=== PATIENT | female | born 1980 | race Caucasian/White ===

== ENCOUNTER 2017-12-13 09:42 | Emergency (ER) | payer BC ==
--- NOTE | 2017-12-13 11:14 | UC ---
Shoulder Pain HPI - HPI Summary HPI Summary: Patient awoke 2 days ago with left shoulder pain. Patient has limited active range of motion but has full passive range of motion complains of anterior pain with movement of her shoulder. Neuromotor circulation intact distally.no swelling, rash, warmth - History of Current Complaint Chief Complaint: UCUpperExtremity Stated Complaint: SHOULDER PAIN Time Seen by Provider: 12/13/17 11:07 Hx Obtained From: Patient Hx Last Menstrual Period: 12/03/17 ?: No Onset/Duration: Sudden Onset, Lasting Days - 2 Timing: Constant Location Of Pain: Is Discrete @ - anterior left shoulder Pain Intensity: 6 Pain Scale Used: 0-10 Numeric Character: Aching, Stiffness Aggravating Factor(s): Movement Alleviating Factor(s): Nothing Associated Signs And Symptoms: Positive: Negative Related History: Dominant Hand Right - Allergies/Home Medications Allergies/Adverse Reactions: Allergies Allergy/AdvReac Type Severity Reaction Status Date / Time Penicillins Allergy Hives Verified 12/13/17 11:03 Home Medications: Home Medications Norgestimate-Ethinyl Estradiol [Ortho Tri-Cyclen Lo Tablet] 1 tab PO DAILY 12/13 [History Confirmed 12/13/17] PMH/Surg Hx/FS Hx/Imm Hx Previously Healthy: Yes - Surgical History Surgical History: Yes Surgery Procedure, Year, and Place: [facility] - Family History Known Family History: Positive: None - Social History Occupation: Employed Full-time Lives: With Family Alcohol Use: Weekly Substance Use Type: None Smoking Status (MU): Light Every Day Tobacco Smoker Review of Systems Constitutional: Negative Skin: Negative Eyes: Negative ENT: Negative Respiratory: Negative Cardiovascular: Negative Gastrointestinal: Negative Genitourinary: Negative Motor: Negative Neurovascular: Negative Musculoskeletal: Arthralgia - anterior left shoulder Neurological: Negative Psychological: Negative Is Patient Immunocompromised?: No All Other Systems Reviewed And Are Negative: Yes Physical Exam Triage Information Reviewed: Yes Appearance: Well-Appearing, No Pain Distress, Well-Nourished Vital Signs: Initial Vital Signs Temp 97.8 F 12/13/17 10:57 Pulse 83 12/13/17 10:57 Resp 16 12/13/17 10:57 BP 131/54 12/13/17 10:57 Pulse Ox 99 12/13/17 10:57 Vital Signs Reviewed: Yes Eye Exam: Normal Eyes: Positive: Conjunctiva Clear ENT Exam: Normal ENT: Positive: Normal ENT inspection, Hearing grossly normal. Negative: Trismus , Muffled voice, Hoarse voice Dental Exam: Normal Neck exam: Normal Neck: Positive: Supple, Nontender Respiratory Exam: Normal Respiratory: Positive: Chest non-tender, Lungs clear, Normal breath sounds, No respiratory distress, No accessory muscle use Cardiovascular Exam: Normal Cardiovascular: Positive: RRR, Pulses Normal, Brisk Capillary Refill Musculoskeletal Exam: Normal Musculoskeletal: Positive: No Edema, Strength Limited @ - left shoulder due to pain, ROM Limited @ - left shoulder Neurological Exam: Normal Neurological: Positive: Alert Psychological Exam: Normal Skin Exam: Normal Diagnostics - Radiology No standard instances Xray Interpretation: No Acute Changes Radiology Interpretation Completed By: ED Physician, Radiologist - Patient Name : HANH LEUNG Medical Record#: [id number] Ordering Physician: Lisandra Levy NP Acct.#: [id number] : 1980 Age: 37 Sex: F Location: [facility] Exam Date: 12/13/17 1116 ADM Status: REG ER Order Information: SHOULDER LEFT 2+ VWS Accession Number: [id number] CPT: 41588 INDICATION: Left shoulder pain. TECHNIQUE: 4 views of the left shoulder were obtained. FINDINGS: The bones are in normal alignment. No fracture is seen. There is mild osteoarthritic change in the acromioclavicular and glenohumeral joints. IMPRESSION: MILD OSTEOARTHRITIC CHANGE. <Electronically signed by Cory Luis MD in OV> 1147 Dictated By: Cory Luis MD Dictated Date/Time: 12/13/17 1147 Transcribed Date/Time: 12/13/17 1146 Copy to: CC:Hanh Carrington MD; Mitali Bernal MD; Lisandra Levy NP Imaging - [facility] Imaging - [facility] Imaging - [facility] [address] [address] ) ph ([phone]) ([phone]) This report is only to be considered final once signed by the Provider(s) as displayed in the "<Electronically Signed by >" field (s). Absence of a signature indicates the report is in a draft status and still needs to be finalized. In the event this document was created by someone other than the signing Provider, the individual initiating the document will be listed in the "Entered by:" or "Dictated by:" elizabeth. 1 of 1 Shoulder Course/Dx - Course Assessment/Plan: ibuprofen rest ice follow with orthopedic MD on Saturday as planned--activites limited to pain tolerance - Differential Dx/Diagnosis Provider Diagnoses: acute left shoulder pain Discharge - Sign-Out/Discharge Documenting (check all that apply): Patient Departure All imaging exams completed and their final reports reviewed: Yes - Discharge Plan Condition: Stable Disposition: HOME Patient Education Materials: Ibuprofen (By mouth), Arthralgia (ED), Shoulder Pain (ED) Referrals: Mitali Bernal MD [Primary Care Provider] - Additional Instructions: Follow with Orthopedic MD on Saturday as planned - Billing Disposition and Condition Condition: STABLE Disposition: Home
--- NOTE | 2017-12-13 11:50 | RAD ---
INDICATION: Left shoulder pain. TECHNIQUE: 4 views of the left shoulder were obtained. FINDINGS: The bones are in normal alignment. No fracture is seen. There is mild osteoarthritic change in the acromioclavicular and glenohumeral joints. IMPRESSION: MILD OSTEOARTHRITIC CHANGE.
== END 2017-12-13 12:00 | disposition home or self-care (01) ==
LOC: UCEAST 09:42
DX: M25.512 Pain in left shoulder (principal); F17.210 Nicotine dependence, cigarettes, uncomplicated; Z88.0 Allergy status to penicillin
CPT/HCPCS: 99211; G0463

== ENCOUNTER 2018-11-05 11:34 | Emergency (ER) | payer BC ==
[2018-11-05 12:08] VITALS: BP 114/76
--- NOTE | 2018-11-05 12:41 | UC ---
Skin Complaint HPI - HPI Summary HPI Summary: 38-year-old woman comes in with a chief complaint of a skin irritation on the back of her neck. About 3 days ago she felt a raised area she thought it was either a pimple or an insect bite which she ended up scratching. Since that time it has not improved and is getting worse. No fevers no chills. Feels well otherwise. Did not see a tick but she is concerned about the possibility of a tick bite. - History of Current Complaint Chief Complaint: UCSkin Time Seen by Provider: 11/05/18 12:30 Stated Complaint: TICK BITE Hx Last Menstrual Period: 11/02/18 Pain Intensity: 0 - Allergy/Home Medications Allergies/Adverse Reactions: Allergies Allergy/AdvReac Type Severity Reaction Status Date / Time Penicillins Allergy Hives Verified 11/05/18 12:08 PMH/Surg Hx/FS Hx/Imm Hx Previously Healthy: Yes - Surgical History Surgical History: Yes Surgery Procedure, Year, and Place: cholecystectomy - Family History Known Family History: Positive: None - Social History Alcohol Use: Occasionally Substance Use Type: None Smoking Status (MU): Light Every Day Tobacco Smoker Amount Used/How Often: 5 sig/day Review of Systems All Other Systems Reviewed And Are Negative: Yes Constitutional: Positive: Negative Skin: Positive: Other - SEE HPI Eyes: Positive: Negative ENT: Positive: Negative Respiratory: Positive: Negative Cardiovascular: Positive: Negative Gastrointestinal: Positive: Negative Motor: Positive: Negative Neurovascular: Positive: Negative Musculoskeletal: Positive: Negative Neurological: Positive: Negative Psychological: Positive: Negative Is Patient Immunocompromised?: No Physical Exam Triage Information Reviewed: Yes Appearance: Well-Appearing, No Pain Distress, Well-Nourished Vital Signs: Initial Vital Signs Temp 97.6 F 11/05/18 12:01 Pulse 81 11/05/18 12:01 Resp 16 11/05/18 12:01 BP 114/76 11/05/18 12:01 Pulse Ox 99 11/05/18 12:01 Vital Signs Reviewed: Yes Eye Exam: Normal Eyes: Positive: Conjunctiva Clear Neck: Positive: Supple Respiratory: Positive: No respiratory distress Musculoskeletal: Positive: Strength Intact, ROM Intact Neurological: Positive: Alert, Muscle Tone Normal Psychological: Positive: Age Appropriate Behavior Skin: Positive: Other - On the lower posterior neck approximately at the level of C7-T1 there is a rash with a 1 cm scab. There is surrounding erythema up to 3 cm in diameter. Within the scab is a slightly darker area in the middle. Do not appreciate any foreign body or tick. No streaking no drainage. Course/Dx - Course Course Of Treatment: The cause of the infected area may be initially from insect bite or folliculitis that's been scratched. We discussed different treatment possibilities. At this time I do not appreciate any foreign body in the middle the scab and therefore I did not try to open it up. We discussed different treatment with antibiotics and at this time patient prefers to treat with doxycycline as that would also cover for a tickborne illness if that was the cause to begin with. Discussed that if does not improve patient needs to get reevaluated. - Diagnoses Provider Diagnosis: Cellulitis Discharge - Sign-Out/Discharge Documenting (check all that apply): Patient Departure All imaging exams completed and their final reports reviewed: No Studies - Discharge Plan Condition: Stable Disposition: HOME Prescriptions: DOXYcycline CAP(*) [DOXYcycline 100MG CAP(*)] 100 mg PO BID #28 cap Patient Education Materials: Cellulitis (ED), Insect Bite or Sting (ED) Referrals: Mitali Bernal MD [Primary Care Provider] - Additional Instructions: FOLLOW UP WITH YOUR DOCTOR IF NOT COMPLETELY IMPROVED. GET RECHECKED SOONER IF YOUR CONDITION WORSENS; FEVER, YOU FEEL ILL, THE RASH DOES NOT IMPROVE OR ANY QUESTIONS OR CONCERNS. - Billing Disposition and Condition Condition: STABLE Disposition: Home
== END 2018-11-05 12:53 | disposition home or self-care (01) ==
LOC: UCEAST 11:34
DX: L03.221 Cellulitis of neck (principal); F17.210 Nicotine dependence, cigarettes, uncomplicated; Z88.0 Allergy status to penicillin
CPT/HCPCS: 99212; G0463